=== PATIENT | male | born 1990 | race Caucasian/White ===

== ENCOUNTER 2018-07-19 20:15 | Emergency (ER) | payer SELFPAY ==
--- NOTE | 2018-07-19 21:27 | ED Physician Documentation ---
General Adult - HISTORIAN Historian: patient - HPI Stated Complaint: weakness Chief Complaint: General Adult Onset: days ago Timing: still present Severity: moderate Further Comments: yes (Pt is a 28 yo male with weakness, malaise. Pt had been working outside all day and thinks he got overheated. Pt has had a cough.) - ROS CONST: weakness, other (malaise) EYES/ENT: none CVS/RESP: cough GI/: none MS/SKIN/LYMPH: none - PAST HX Past History: none Other History: none Allergies/Adverse Reactions: Allergies Allergy/AdvReac Type Severity Reaction Status Date / Time No Known Allergies Allergy Verified 07/19/18 22:04 Home Medications: Ambulatory Orders Medication Instructions Recorded NK 07/19/18 - SOCIAL HX Smoking History: cigarettes Drug Use: marijuana - FAMILY HX Family History: No - REVIEWED ASSESSMENTS Nursing Assessment Reviewed: Yes Vitals Reviewed: Yes Progress - Progress Progress: NS 1 L IVF much improved after IVF General Adult Physical Exam - PHYSICAL EXAM GENERAL APPEARANCE: anxious EENT: pharynx normal NECK: normal inspection, supple RESPIRATORY: no resp distress, chest non-tender, breath sounds normal CVS: reg rate & rhythm, heart sounds normal ABDOMEN: soft, no organomegaly, normal bowel sounds BACK: normal inspection, no CVA tenderness SKIN: warm/dry, normal color EXTREMITIES: non-tender, normal range of motion, no evidence of injury NEURO: oriented X3, motor nml, sensation nml, other (anxious) Discharge Clincal Impression: mild dehydration/hyponatremia Referrals: Primary Doctor,No [Primary Care Provider] - Condition: Good Disposition: 01 HOME, SELF-CARE Decision to Admit: NO Decision Time: 23:00
[2018-07-19] MEDS ORDERED: 0.9 % SODIUM CHLORIDE 1,000 ML IV ONE (21:28)
[2018-07-19 22:19] LABS: eGFR (Non-African) > 60
[2018-07-20 00:24] VITALS: BP 136/89
--- NOTE | 2018-07-20 06:26 | Diagnostic Imaging Report ---
MARIBEL LOPEZ [facility] [id number] [facility] [address] [id number] Report Submission Date: Jul 19, 2018 10:01:15 PM CDT Patient Study Name: MARK SMITH Date: Jul 19, 2018 9:37:29 PM CDT Modality Type: DX Gender: M Description: CHEST : 89 Institution: [facility] Physician: MARIBEL LOPEZ Portable chest Clinical history: Cough. Findings: Examination of the chest in single portable AP view demonstrates lungs to be hyperinflated but clear. Cardiovascular and mediastinal silhouettes are within normal limits. Impression: 1. Hyperinflation. 2. No active disease. Electronically signed on Jul 19, 2018 10:01:15 PM CDT by: Erik GUILLEN
[2018-07-20] MEDS ORDERED: methylPREDNISolone SOD SUCC 125 MG/2 ML VIAL ONE (23:22)
== END 2018-07-19 23:00 | disposition home or self-care (01) ==
LOC: ED 20:15
DX: E86.0 Dehydration (principal); E87.1 Hypo-osmolality and hyponatremia
CPT/HCPCS: 71045; 80053; 85025; J7030; 96360; 99284; S1016